=== PATIENT | male | born 1980 | race African-American/Black ===

== ENCOUNTER 2016-07-09 12:37 | Emergency (ER) | payer OTHER ==
[2016-07-09] MEDS ORDERED: Ibuprofen TAB* 600 MG PO ONE (14:06)
[2016-07-09] MEDS ORDERED: Ibuprofen TAB* 600 MG ONE (14:15)
[2016-07-09] MEDS ORDERED: Nystatin TOP POWDER* 15 GM BTL TOPICAL SCH (14:30)
[2016-07-09 14:48] VITALS: BP 109/60
--- NOTE | 2016-07-09 14:57 | ED ---
Skin Complaint - HPI Summary HPI Summary: Pt here w/ foot "infection" between 4th and 5th toes B/L. Has had this for 3 weeks this time, but has been dealing with this issue on/off for 6 years. Within the past couple of months, pt was seen at [facility] in [place] and received anti-fungal tx as well as anbx for cellulitis in the same area. He had relief from this tx but feels it's back now and is concerned. He denies fever, chills, swelling, streaking, numbness but skin is peeling and he notes a malodorous d/c. He is here because the itching and irritation are unbearable and he feels he needs further tx at this time. Tried soaking also night w/o much relief. Denies DM. - History of Current Complaint Chief Complaint: EDExtremityLower Time Seen by Provider: 07/09/16 13:54 Stated Complaint: BOTH FEET /MED REQUEST Hx Obtained From: Patient Pain Intensity: 8 Pain Scale Used: 0-10 Numeric - Allergy/Home Medications Allergies/Adverse Reactions: Allergies Allergy/AdvReac Type Severity Reaction Status Date / Time No Known Allergies Allergy Verified 07/09/16 12:45 PMH/Surg Hx/FS Hx/Imm Hx Previously Healthy: Yes Endocrine/Hematology History: Denies: Autoimmune Disease Infectious Disease History: No Infectious Disease History: Reports: History Other Infectious Disease - 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 Denies: Traveled Outside the [place] in Last 30 Days - Family History Known Family History: Positive: Unknown - Social History Occupation: Unemployed Lives: With Family - girlfriend Alcohol Use: None Substance Use Type: Reports: Marijuana Substance Use Comment - Amount & Last Used: daily, last smoked pot yesterday Smoking Status (MU): Current Every Day Smoker Review of Systems Negative: Fever, Chills Negative: Chest Pain Negative: Shortness Of Breath Positive: no symptoms reported Negative: Arthralgia, Myalgia Skin: Other - see HPI Neurological: Negative Positive: Anxious All Other Systems Reviewed And Are Negative: Yes Physical Exam Triage Information Reviewed: Yes Vital Signs On Initial Exam: Initial Vitals Temp Pulse Resp BP Pulse Ox 98.9 F 58 16 119/70 100 07/09/16 12:40 07/09/16 12:40 07/09/16 12:40 07/09/16 12:40 07/09/16 12:40 Vital Signs Reviewed: Yes Appearance: Positive: Well-Appearing, No Pain Distress, Well-Nourished Skin: Positive: Warm - macerated wet skin between 4th and 5th toes B/L - no erythema, no active drainage Head/Face: Positive: Normal Head/Face Inspection Eyes: Positive: Normal, EOMI, Conjunctiva Clear ENT: Positive: Hearing grossly normal, Pharynx normal - mucosa moist Neck: Positive: Supple Respiratory/Lung Sounds: Positive: Breath Sounds Present Cardiovascular: Positive: Normal, Pulses are Symmetrical in both Upper and Lower Extremities Musculoskeletal: Positive: Normal, Strength/ROM Intact Neurological: Positive: Normal, Sensory/Motor Intact, Alert, Oriented to Person Place, Time Psychiatric: Positive: Anxious Diagnostics - Vital Signs Vital Signs Temp Pulse Resp BP Pulse Ox 07/09/16 14:46 98.6 F 58 16 109/60 07/09/16 12:40 98.9 F 58 16 119/70 100 - Laboratory Lab Statement: Any lab studies that have been ordered have been reviewed, and results considered in the medical decision making process. Course/Dx - Course Course Of Treatment: D/t pt's h/o cellulitis 2ndry to fungal infection in toes and prolonged fungal infection this time, will start anbx to tx potential cellulitis now as pt is adamant this will happen. Provided with nystatin powder and advised close f/u w/ PCP in the event he requires an oral anti-fungal. Explained this requires liver monitoring which he voices understanding. Agrees w / plan and understands danger s/sx of when to return to ED. - Diagnoses Provider Diagnoses: Tinea pedis of both feet Discharge - Discharge Plan Condition: Stable Disposition: HOME Prescriptions: Sulfamethox/Trimethoprim DS* [Bactrim DS 800/160 TAB*] 1 tab PO BID #[id number] tab Patient Education Materials: Tinea Pedis (ED) Referrals: [facility] [Outside] Additional Instructions: You appear to have a fungal infection between your toes. It is important that you keep this area dry and apply medicated powder as directed. Avoid prolonged moisture and in fact it would be best to "air out" your feet as much as possible. Additionally, you may take ibuprofen with food and elevate feet for pain. You are concerned about secondary bacterial infection as this has happened in the past so an antibiotic has been added to your regimen as well. Follow-up with your PCP next week to recheck affected areas. You may be a candidate for more medication if your condition is not improving. This needs to be monitored and so close follow-up with your PCP is important. *If you develop redness, swelling, streaking, fever, chills, or purulent drainage, return to ED
== END 2016-07-09 14:46 | disposition home or self-care (01) ==
LOC: ED 12:37
DX: B35.3 Tinea pedis (principal)
CPT/HCPCS: 99282; A9270-GY